=== PATIENT | female | born 1955 ===

== ENCOUNTER 2022-07-08 05:20 | Day surgery (SDC) | payer OTHER ==
[~2022-07-08 05:20] MED LIST: FLONASE16 GM; FLOVENT HFA12 G1 IH; MULTIPLE VITAM1 EAC2 PO; OMEGA-31000 MG PO; PROVENTIL HFA6.7 GM IH; TURMERIC500 M1 PO; UNISOM25 MG PO
== END 2022-07-08 13:10 | disposition home or self-care (01) ==
LOC: SURG 05:20 → CIR.AMB 05:20 → O/R 05:20 → SURG 05:45 → EDSTATUS 10:15 → CIR.AMB 13:10 → O/R 13:10
PROVIDERS: ATTEND Colon & Rectal Surgery
DX: N81.6 Rectocele (principal); R15.9 Full incontinence of feces; Z20.822 Contact with and (suspected) exposure to COVID-19; N82.3 Fistula of vagina to large intestine; J45.909 Unspecified asthma, uncomplicated